=== PATIENT | female | born 1975 | race Caucasian/White ===

== ENCOUNTER 2018-08-28 13:55 | Outpatient (CLI) | payer OTHER | END 2018-08-28 15:02 | disposition home or self-care (01) | LOC: SONOGRAMA 13:55 | DX: N63.13 Unspecified lump in the right breast, lower outer quadrant (principal); N60.11 Diffuse cystic mastopathy of right breast; N60.12 Diffuse cystic mastopathy of left breast ==

== ENCOUNTER 2018-11-24 15:01 | Outpatient (CLI) | payer OTHER | END 2018-11-24 15:09 | disposition home or self-care (01) | LOC: SONOGRAMA 15:01 | DX: N63.11 Unspecified lump in the right breast, upper outer quadrant (principal); N60.11 Diffuse cystic mastopathy of right breast ==

== ENCOUNTER → 2019-01-12 | Day surgery (SDC) | payer OTHER ==
[~2019-01-12] MED LIST: CENTRUM SILVER1 EAC3 PO; CLARITIN10 M1 PO; OCUVITE SOFTGE1 EACH PO; SINGULAIR10 MG PO
== END | disposition home or self-care (01) ==
LOC: CIR.AMB 07:42
DX: D24.1 Benign neoplasm of right breast (principal)